=== PATIENT | female | born 1985 | race Caucasian/White ===

== ENCOUNTER 2023-06-09 12:16 | Emergency (ER) | payer BC ==
[~2023-06-09] VITALS: Ht 160 cm; Wt 68.2 kg
[~2023-06-09 12:16] MED LIST: LORTAB 5/500 501 TAB PO; MACROBID100 MG PO; MVI; PERCOCET 325 MG1 TA2 PO; WELLBUTRIN 100100 MG PO
[2023-06-09 12:19] VITALS: TEMP 97.9
[2023-06-09] MEDS ORDERED: NS 1,000 ML IV ONE ×2 (12:45→14:45)
[2023-06-09] MEDS ORDERED: LORazepam 2 MG/ML 1 ML VIAL IV ONE (12:45)
[2023-06-09 13:14] LABS: BASO % 0.4 % (0.0-2.0); EOS % 0.4 % (0.0-4.0); GRAN % 74.8 % (42.2-75.2); HEMATOCRIT 43.9 % (37.0-47.0); HEMOGLOBIN 14.5 g/dl (12.5-16.0); LYMPH # 1.7 K/mm3 (1.2-3.4); LYMPH % 17.9 % (20.0-51.0); MEAN CELL VOLUME 89 fl (80.0-100.0); MEAN CORPUSCULAR HEMOGLOBIN 29 pg (27-31); MEAN CORPUSCULAR HGB CONC 33 g/dl (33.0-37.0); MEAN PLATELET VOLUME 9.5 fl (7.4-10.4); MONO # 0.6 K/mm3 (0.1-0.6); MONO % 6.1 % (1.7-9.3); PLATELET COUNT 355 K/mm3 (130-400); RED BLOOD COUNT 4.96 M/mm3 (4.10-5.30); REDCELL DISTRIBUTION WIDTH-CV 13.1 % (11.5-14.5)
[2023-06-09 13:25] LABS: ALANINE AMINOTRANSFERASE 42 U/L (0-55); ALBUMIN 4.3 gm/dL (3.5-5.0); ALKALINE PHOSPHATASE 89 U/L (40-150); ANION GAP 15 mmol/L (7-16); AST,SGOT 20 U/L (5-34); BILIRUBIN,TOTAL 0.2 mg/dL (0.2-1.2); BLOOD UREA NITROGEN 9 mg/dL (7-19); CARBON DIOXIDE 19 mmol/L (22-29); CHLORIDE 106 mmol/L (98-107); CREATININE, serum 0.79 mg/dL (0.57-1.11); GLUCOSE 118 mg/dL (70-99); POTASSIUM 3.7 mmol/L (3.5-4.5); SODIUM 140 mmol/L (136-145); TOTAL PROTEIN 7.4 gm/dL (6.2-8.1)
[2023-06-09 13:32] LABS: ALCOHOL(ethanol),MEDICAL < 10 mg/dL (0-10)
[2023-06-09] MEDS ORDERED: Ketorolac 30 MG/ML VIAL IV ONE (14:45)
[2023-06-09] MEDS ORDERED: Ondansetron 4 MG/2 ML VIAL IV ONE (14:45)
[2023-06-09 16:03] VITALS: BP 127/88; PULSE 113
== END 2023-06-09 15:59 | disposition home or self-care (01) ==
LOC: COL.ER 12:16
PROVIDERS: Physician Assistant
DX: F15.13 Other stimulant abuse with withdrawal (principal); Z87.891 Personal history of nicotine dependence
CPT/HCPCS: J1885; J2060; J2405; J7030